=== PATIENT | female | born 1990 | race Two or more races ===

== ENCOUNTER 2018-09-25 09:09 | Emergency (ER) | payer OTHER ==
[~2018-09-25] VITALS: Ht 162.6 cm; Wt 68.3 kg
[2018-09-25 12:18] VITALS: BP 103/59
== END 2018-09-25 12:47 | disposition home or self-care (01) ==
LOC: ED 11:42
DX: O20.0 Threatened abortion (principal); O23.11 Infections of bladder in pregnancy, first trimester; Z3A.08 8 weeks gestation of pregnancy
CPT/HCPCS: 36415; 76801; 81001; 84702; 85025; 86850; 86870; 86900; 87086; 96372; 99284; J2790